=== PATIENT | female | born 1950 | race Native Hawaiian/Other Pacific Islander ===

== ENCOUNTER 2017-03-20 20:36 | Outpatient (CLI) | payer OTHER | END 2017-03-20 22:00 | disposition home or self-care (01) | LOC: LABW 20:36 | DX: J42 Unspecified chronic bronchitis (principal) | CPT/HCPCS: 36415; 82784; 82785; 82787 ==

== ENCOUNTER 2017-10-30 19:39 | Outpatient (CLI) | payer OTHER | END 2017-10-30 20:00 | disposition home or self-care (01) | LOC: LABW 19:39 | DX: J42 Unspecified chronic bronchitis (principal) | CPT/HCPCS: 36415; 82784; 82785; 82787 ==